=== PATIENT | female | born 1970 | race Caucasian/White ===

== ENCOUNTER 2020-05-07 14:47 | Emergency (ER) | payer SELFPAY ==
[~2020-05-07] VITALS: Ht 175.3 cm; Wt 125.0 kg
[2020-05-07] MEDS ORDERED: LIDOCAINE 1%-EPI 1:100K, 20ML ONE ×2 (15:17→16:47)
[2020-05-07] MEDS ORDERED: ONDANSETRON 2MG/ML, 2ML ONE (15:23)
[2020-05-07] MEDS ORDERED: MORPHINE SULFATE 4 MG/ML, 1ML ONE ×2 (15:23→16:44)
[2020-05-07] MEDS: MORPHINE SULFATE 4 MG/ML, 1ML IVPush PRN ×2 (15:27→16:48)
[2020-05-07] MEDS ORDERED: LIDOCAINE 1%-EPI 1:100K, 20ML SQ ONE (15:30)
[2020-05-07] MEDS ORDERED: SODIUM CHLORIDE FLUSH 10ML SYR IVF ONE (15:30)
[2020-05-07] MEDS ORDERED: ONDANSETRON 2MG/ML, 2ML IVPush ONE (15:30)
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
[2020-05-07] MEDS ORDERED: DIPH,PERTUSS(ACELL),TET VAC/PF 0.5 ML IM-VACC ONE ×2 (16:00→16:05)
--- NOTE | 2020-05-07 17:52 | NUR ---
PT REMEDICATED FOR PAIN WITH GOOD RESULTS. RUBÉN HARRELL AT BEDSIDE FOR EXTENSIVE LAC REPAIR.
[2020-05-07] MEDS ORDERED: CEFAZOLIN 2,000 MG in SODIUM CHLORIDE 0.9% 50 ML IV ONE (18:30)
[2020-05-07] MEDS ORDERED: CEFAZOLIN PMX 1GM/50ML 50 ML ONE (18:44)
[2020-05-07] MEDS ORDERED: CEFAZOLIN PMX 2GM/50ML 50 ML IVPB ONE (19:00)
[2020-05-07] MEDS ORDERED: NEOSPORIN OINT. PKT 1 PACKET ONE (19:04)
--- NOTE | 2020-05-07 19:45 | NUR ---
PT WD CLEANED AND DRESSED BY TECH. DONAVON PETERSON. PT'S PAIN WELL CONTROLLED AT THIS TIME. PT OK FOR D/C PER ERMD. PT HAS ALL OWN BELONGINGS UPON D/C.
[2020-05-07 20:14] VITALS: BP 158/83
== END 2020-05-07 20:16 | disposition home or self-care (01) ==
LOC: ED 19:54
DX: S81.811A Laceration without foreign body, right lower leg, initial encounter (principal); S80.11XA Contusion of right lower leg, initial encounter; S80.812A Abrasion, left lower leg, initial encounter; M19.90 Unspecified osteoarthritis, unspecified site; J45.909 Unspecified asthma, uncomplicated; I10 Essential (primary) hypertension; V19.9XXA Pedal cyclist (driver) (passenger) injured in unspecified traffic accident, initial encounter; Y93.89 Activity, other specified; Y92.410 Unspecified street and highway as the place of occurrence of the external cause; Y99.8 Other external cause status
CPT/HCPCS: 12035; 73590; 73610; 73630; 90471; 90715; 96365; 96375; 96376; 99285; J0690; J2270; J2405; J3490